=== PATIENT | female | born 1990 | race African-American/Black ===

== ENCOUNTER 2018-03-06 17:42 | Emergency (ER) | payer OTHER ==
[~2018-03-06] VITALS: Ht 175.3 cm; Wt 150.0 kg
[2018-03-06] MEDS ORDERED: KETOROLAC 60MG/2ML VIAL IM ONE (22:45)
[2018-03-07 00:18] VITALS: BP 120/69
== END 2018-03-07 00:20 | disposition home or self-care (01) ==
LOC: ER 17:42
DX: S76.011A Strain of muscle, fascia and tendon of right hip, initial encounter (principal); X58.XXXA Exposure to other specified factors, initial encounter; Y93.89 Activity, other specified; Y92.89 Other specified places as the place of occurrence of the external cause; Y99.8 Other external cause status; Z88.1 Allergy status to other antibiotic agents
CPT/HCPCS: 73502; 81025; 96372; 99284; J1885